=== PATIENT | male | born 1975 | race Caucasian/White ===

== ENCOUNTER 2018-01-22 17:35 | Emergency (ER) | payer OTHER ==
[~2018-01-22] VITALS: Ht 180.3 cm; Wt 102.1 kg
[2018-01-22 17:38] VITALS: Ht 180.3 cm; Wt 102.1 kg
[2018-01-22 21:10] VITALS: BP 131/78
== END 2018-01-22 21:10 | disposition home or self-care (01) ==
LOC: ED 17:35
DX: S61.210A Laceration without foreign body of right index finger without damage to nail, initial encounter (principal); W26.8XXA Contact with other sharp object(s), not elsewhere classified, initial encounter; Y93.89 Activity, other specified; Y92.098 Other place in other non-institutional residence as the place of occurrence of the external cause; Y99.8 Other external cause status
CPT/HCPCS: 90715; J2001

== ENCOUNTER 2018-01-24 11:32 | Emergency (ER) | payer OTHER ==
[~2018-01-24] VITALS: Ht 180.3 cm; Wt 103.4 kg
[2018-01-24 11:55] VITALS: Ht 180.3 cm; Wt 103.4 kg
[2018-01-24 13:07] VITALS: BP 121/66
== END 2018-01-24 13:07 | disposition home or self-care (01) ==
LOC: ED 11:32
DX: S61.210D Laceration without foreign body of right index finger without damage to nail, subsequent encounter (principal); X58.XXXD Exposure to other specified factors, subsequent encounter